=== PATIENT | female | born 1965 | race Caucasian/White ===

== ENCOUNTER 2019-08-31 10:11 | Day surgery (SDC) | payer MEDICARE, MEDICAID ==
[~2019-08-31] VITALS: Ht 167.6 cm; Wt 70.3 kg
[2019-08-31] VITALS (16 sets, daily range): BP systolic 139–196; BP diastolic 79–109
[~2019-08-31 10:11] MED LIST: HYDR-3686 PO; HYDR-3965 PO; IBUP-1986 PO; LEVO150T8 PO; TRAZ150T78 PO; cefazolin/dext.iso 2gm/50ml 50 ML IV ONE; famotidine 20mg tablet PO ONE; ringers solution, lacted 1,000 ML IV SCH; vancomycin 1,500 MG in NS 300ml IV soln IV ONE
--- NOTE | 2019-08-31 11:00 | NUR ---
COVID 19 VERBAL SCREENING COMPLETED, ALL QUESTIONS ANSWERED CORRECTLY, NEG SCREEN
[2019-08-31] MEDS ORDERED: fentaNYL/PF 50MCG/1 ML 2ML syringe ONE (11:26)
[2019-08-31] MEDS ORDERED: MIDAZolam 5mg/5ml vial ONE (11:26)
[2019-08-31] MEDS ORDERED: dexamethasone sod phosphate 4mg/ml inj. ONE (11:26)
[2019-08-31] MEDS ORDERED: LIDOcaine 2% (20mg/ml) 5ml vial ONE (11:27)
[2019-08-31] MEDS ORDERED: propofol inj 20 ML IV ONE (11:27)
[2019-08-31] MEDS ORDERED: BUPIVAcaine/PF 2.5 mg/ml (0.25%) 30ml vial ONE (11:49)
[2019-08-31 12:00] LABS: BASOPHILS # (AUTO) 0.1 X10'3 (0-0.2); BASOPHILS % (AUTO) 0.7 % (0-1); EOSINOPHILS # (AUTO) 0.2 X10'3 (0-0.9); EOSINOPHILS % (AUTO) 2.7 % (0-6); LYMPHOCYTES # (AUTO) 1.7 X10'3 (1.1-4.8); LYMPHOCYTES % (AUTO) 21.6 % (21-51); MEAN CORPUSCULAR HEMOGLOBIN 32.3 PG (27.0-31.0); MEAN CORPUSCULAR HGB CONC 33.8 g/dL (33.0-36.5); MEAN CORPUSCULAR VOLUME 95.4 FL (78-98); MEAN PLATELET VOLUME 9.5 FL (7.4-10.4); MONOCYTES # (AUTO) 0.7 X10'3 (0-0.9); MONOCYTES % (AUTO) 9.3 % (2-12); NEUTROPHILS # (AUTO) 5.1 X10'3 (1.8-7.7); NEUTROPHILS % (AUTO) 65.7 % (42-75); PRE OP HEMATOCRIT 41.9 % (35.0-45.0); PRE OP HEMOGLOBIN 14.2 g/dL (12.0-16.0); PRE OP PLATELET COUNT 340 X10'3 (140-440); RED BLOOD COUNT 4.39 X10'6 (4.20-5.60); RED CELL DISTRIBUTION WIDTH 13.6 % (11.5-14.5)
[2019-08-31 12:11] LABS: ALBUMIN 3.9 G/DL (3.4-5.0); ALBUMIN/GLOBULIN RATIO 1.3 (1.1-1.5); ALKALINE PHOSPHATASE 71 IU/L (46-116); BLOOD UREA NITROGEN 16 MG/DL (7-18); BUN/CREATININE RATIO 21.1 (6.6-38.0); CALCIUM 9.2 MG/DL (8.5-10.1); CHLORIDE 105 MMOL/L (99-107); CREATININE 0.76 MG/DL (0.40-0.90); PRE OP ALT 45 U/L (30-65); PRE OP ANION GAP 9 (8-16); PRE OP AST 26 U/L (10-37); PRE OP BILIRUB, TOTAL 0.4 MG/DL (0.0-1.0); PRE OP GLUCOSE 73 MG/DL (70-104); PRE OP POTASSIUM 4.3 MMOL/L (3.4-5.1); PRE OP SODIUM 141 MMOL/L (135-145); TOTAL CARBON DIOXIDE 27.1 MMOL/L (24-32); eGFR 79 ML/MIN
[2019-08-31] MEDS ORDERED: ringers solution, lacted 1,000 ML IV SCH (12:30)
[2019-08-31] MEDS ORDERED: fentaNYL/PF 50MCG/1 ML 2ML syringe IV PRN ×2 (12:30)
[2019-08-31] MEDS ORDERED: morphine 2 MG/ML inj. syringe IV PRN (12:30)
[2019-08-31] MEDS ORDERED: hydrALAZINE 20mg/ml inj. IV PRN (12:30)
[2019-08-31] MEDS ORDERED: labetalol 20mg/4ml (5mg/ml) syringe IV PRN (12:30)
[2019-08-31] MEDS ORDERED: morphine 4 MG/ML inj SYRINge IV PRN (12:30)
[2019-08-31] MEDS ORDERED: ondansetron/PF 4mg/2ml inj IV PRN (12:30)
[2019-08-31] MEDS ORDERED: sevoflurane 250ml liquid IH ONE (13:07)
[2019-08-31] MEDS ORDERED: ondansetron/PF 4mg/2ml inj ONE (13:34)
--- NOTE | 2019-08-31 14:17 | NUR ---
RECEIVED FROM OR VIA [facility] ACCOMPANIED BY ANESTHESIOLOGIST DR PALAFOX, REPORT GIVEN. PT DROWSY BUT AWAKENS EASILY WITH NO COMPLAINT OF PAIN AT THIS TIME. [place] DRESSING TO LEFT SHOULDER CDI. PERIPHERAL PULSES PRESENT, SKIN PINK AND WARM. 20 GAUGE PIV L FA PATENT AND RUNNING LR AT 100 ML/HR.
== END 2019-08-31 16:47 | disposition home or self-care (01) ==
LOC: PAS 10:11
PROVIDERS: ATTEND Orthopaedic Surgery
DX: S42.022A Displaced fracture of shaft of left clavicle, initial encounter for closed fracture (principal); G89.18 Other acute postprocedural pain; I10 Essential (primary) hypertension; E66.9 Obesity, unspecified; Z68.25 Body mass index [BMI] 25.0-25.9, adult; Z87.891 Personal history of nicotine dependence; Z79.899 Other long term (current) drug therapy; Z72.89 Other problems related to lifestyle; Z98.890 Other specified postprocedural states; Z83.3 Family history of diabetes mellitus; Z80.9 Family history of malignant neoplasm, unspecified; W19.XXXA Unspecified fall, initial encounter; Y93.89 Activity, other specified; Y92.89 Other specified places as the place of occurrence of the external cause; Y99.8 Other external cause status
CPT/HCPCS: 23515; 36415; 64415; 64999; 73000; 76000; 80053; 85025; 93005; C1713; J0360; J1100; J2001; J2250; J2405; J2704; J3010; J3370; J3490; J7040; A4565; A4618; A6449; A7000; J7120

== ENCOUNTER 2019-09-21 10:22 | Day surgery (SDC) | payer MEDICARE, MEDICAID ==
[2019-09-16 14:32] LABS: BASOPHILS # (AUTO) 0.1 X10'3 (0-0.2); BASOPHILS % (AUTO) 0.8 % (0-1); EOSINOPHILS # (AUTO) 0.2 X10'3 (0-0.9); EOSINOPHILS % (AUTO) 3.4 % (0-6); LYMPHOCYTES # (AUTO) 1.8 X10'3 (1.1-4.8); LYMPHOCYTES % (AUTO) 26.8 % (21-51); MEAN CORPUSCULAR HEMOGLOBIN 32.5 PG (27.0-31.0); MEAN CORPUSCULAR HGB CONC 33.7 g/dL (33.0-36.5); MEAN CORPUSCULAR VOLUME 96.6 FL (78-98); MEAN PLATELET VOLUME 9.2 FL (7.4-10.4); MONOCYTES # (AUTO) 0.6 X10'3 (0-0.9); MONOCYTES % (AUTO) 8.4 % (2-12); NEUTROPHILS % (AUTO) 60.6 % (42-75); PRE OP HEMATOCRIT 37.6 % (35.0-45.0); PRE OP HEMOGLOBIN 12.7 g/dL (12.0-16.0); PRE OP PLATELET COUNT 318 X10'3 (140-440)
[2019-09-16 14:46] LABS: ALBUMIN 3.9 G/DL (3.4-5.0); ALBUMIN/GLOBULIN RATIO 1.4 (1.1-1.5); ALKALINE PHOSPHATASE 80 IU/L (46-116); BLOOD UREA NITROGEN 8 MG/DL (7-18); BUN/CREATININE RATIO 10.4 (6.6-38.0); CALCIUM 8.9 MG/DL (8.5-10.1); CHLORIDE 105 MMOL/L (99-107); CREATININE 0.77 MG/DL (0.40-0.90); PRE OP ALT 33 U/L (30-65); PRE OP ANION GAP 7 (8-16); PRE OP AST 25 U/L (10-37); PRE OP BILIRUB, TOTAL 0.4 MG/DL (0.0-1.0); PRE OP GLUCOSE 83 MG/DL (70-104); PRE OP POTASSIUM 3.8 MMOL/L (3.4-5.1); PRE OP SODIUM 140 MMOL/L (135-145); TOTAL PROTEIN 6.6 G/DL (6.4-8.2); eGFR 78 ML/MIN
[~2019-09-21] VITALS: Ht 167.6 cm; Wt 70.3 kg
[2019-09-21 10:30] VITALS: BP 138/85
[2019-09-21] MEDS ORDERED: diazepam 5mg tablet PO ONE (12:30)
[2019-09-21] MEDS ORDERED: fentaNYL/PF 50MCG/1 ML 2ML syringe ONE (13:46)
[2019-09-21] MEDS ORDERED: midazolam 2 mg/2 ml injection ONE ×2 (13:47)
[2019-09-21] MEDS ORDERED: sevoflurane 250ml liquid IH ONE (13:48)
[2019-09-21] MEDS ORDERED: propofol inj 20 ML IV ONE (13:48)
[2019-09-21] MEDS ORDERED: ondansetron/PF 4mg/2ml inj ONE (13:48)
[2019-09-21] MEDS ORDERED: ROPIVAcaine 0.5% (5mg/ml) 30ml vial ONE (13:49)
[2019-09-21] MEDS ORDERED: cloNIDine hcl/PF 100mcg/ml inj ONE (13:50)
[2019-09-21] MEDS ORDERED: ringers solution, lacted 1,000 ML IV SCH (14:44)
[2019-09-21] MEDS ORDERED: morphine 4 MG/ML inj SYRINge IV PRN (14:45)
[2019-09-21] MEDS ORDERED: meperidine/PF 25mg/ml syringe IV PRN ×3 (14:45)
[2019-09-21] MEDS ORDERED: ondansetron/PF 4mg/2ml inj IV PRN (14:45)
[2019-09-21] MEDS ORDERED: proCHLORperazine 10 MG/2 ml inj IV PRN (14:45)
[2019-09-21] MEDS ORDERED: morphine 2 MG/ML inj. syringe IV PRN (14:45)
[2019-09-21] MEDS ORDERED: dexamethasone sod phosphate 4mg/ml inj. ONE (15:04)
[2019-09-21 15:20] VITALS: BP 159/94
--- NOTE | 2019-09-21 15:20 | NUR ---
Received from OR via BED , accompanied by Anesthesiologist DR SÁNCHEZ and report given by Anesthesiolgist. PATIENT WAKING UP, DENIES PAIN, V/S WNL, NEUROVASCULAR CHECKS INTACT, 20G PIV RUE, SCD ON, DRESSING TO LEFT SHOULDER CDI
[2019-09-21 15:30] VITALS: BP 144/89
[2019-09-21 15:40] VITALS: BP 139/73
[2019-09-21 15:50] VITALS: BP 147/81
[2019-09-21 16:00] VITALS: BP 144/77
--- NOTE | 2019-09-21 16:00 | NUR ---
PATIENT A&OX4, DENIES PAIN, V/S WNL, NEUROVASCULAR CHECKS INTACT, 20G PIV RUE D/C, SCD OFF, DRESSING TO LEFT SHOULDER CDI WITH SLING ON. I HAVE REVIEWED D/C INSTRUCTIONS WITH PATIENT AND SHE HAS VERBALIZED UNDERSTANDING. PATIENT D/C HOME WITH ALL BELONGINGS AND D/C PAPERWORK AND FAMILY GAVE TRANSPORT.
== END 2019-09-21 16:00 | disposition home or self-care (01) ==
LOC: PAS 10:22
PROVIDERS: ATTEND Orthopaedic Surgery
DX: S42.022K Displaced fracture of shaft of left clavicle, subsequent encounter for fracture with nonunion (principal); I10 Essential (primary) hypertension; E03.9 Hypothyroidism, unspecified; E66.9 Obesity, unspecified; Z68.25 Body mass index [BMI] 25.0-25.9, adult; Z11.59 Encounter for screening for other viral diseases; Z87.891 Personal history of nicotine dependence; Z72.89 Other problems related to lifestyle; Z79.899 Other long term (current) drug therapy; Z96.643 Presence of artificial hip joint, bilateral; Z96.652 Presence of left artificial knee joint; Z98.890 Other specified postprocedural states; X58.XXXD Exposure to other specified factors, subsequent encounter
CPT/HCPCS: 23515; 36415; 73000; 76000; 80053; 82948; 85025; A6222; C1713; J0735; J1100; J2250; J2405; J2704; J3010; J3370; J7040; U0003; A4618; A7000; J2795; J7120